=== PATIENT | female | born 1990 | race Caucasian/White ===

== ENCOUNTER 2017-12-03 05:43 | Inpatient (IN) | payer OTHER ==
[~2017-12-03] VITALS: Ht 170.2 cm; Wt 96.2 kg
[~2017-12-03 05:43] MED LIST: AMOXICILLIN500 MG PO; AUGMENTIN875 MG PO; Feosol PO; INDOCIN25 MG PO; KEFLEX500 MG PO; KEPPRA500 MG PO; KEPPRA750 MG PO; LIDOCAINE20 MG/1 M5 PO; METHADONE 22 MG/1 ML PO; Motrin PO; NAPROSYN500 MG PO; NO MEDS; PRENATAL TABLE1 EACH PO; PYRIDIUM100 MG PO; Percocet 5/325,Endoc PO; ULTRACET1 TABLET PO; VYVANSE30 MG PO; VYVANSE40 MG PO; Vicodin,Lortab 5/500 PO
[2017-12-03 06:03] VITALS: BP 127/71
[2017-12-03 07:34] LABS: BENZODIAZEPINES, URINE SCREEN Negative (200 ng/mL)
[2017-12-03] MEDS ORDERED: ENDOCET 5-3251 EACH PO (08:38)
[2017-12-03] MEDS ORDERED: IBUPROFEN800 MG PO (08:38)
[2017-12-03 10:02] VITALS: BP 120/59
[2017-12-03 11:49] VITALS: BP 136/61
[2017-12-03 19:24] VITALS: BP 125/62
[2017-12-04 07:05] VITALS: BP 132/62
[2017-12-04 07:22] LABS: BASOPHIL (%) 0.4 % (0-1); EOSINOPHIL (%) 1.8 % (0-5); EOSINOPHIL COUNT 0.1 K/uL (0-0.3); HEMATOCRIT 28.5 % (36.0-46.0); IMMATURE GRANULOCYTE (%) 0.5 % (0.0-0.7); LYMPHOCYTE (%) 30.1 % (15-42); LYMPHOCYTE COUNT 2.3 K/uL (1.0-2.8); MCH 29.4 PG (29.0-34.0); MCHC 33.3 G/DL (30.0-36.0); MCV 88.2 FL (83-99); MONOCYTE (%) 6.3 % (3-12); MONOCYTE COUNT 0.5 K/uL (0-0.8); NEUTROPHIL (%) 60.9 % (45-76); NEUTROPHIL COUNT 4.6 K/uL (1.8-6.4); PLATELET COUNT 176 K/uL (156-360); RBC DIS.WIDTH-CV 13.7 % (11.8-14.6); RBC DIS.WIDTH-SD 43.8 % (39-53); WHITE BLOOD COUNT 7.6 K/uL (4.1-10.2)
[2017-12-04 07:25] LABS: HEMOGLOBIN 9.5 G/DL (11.9-15.5); RED BLOOD COUNT 3.23 M/uL (3.80-5.20)
[2017-12-04 11:12] VITALS: BP 127/61
[2017-12-04 15:30] VITALS: BP 129/67
[2017-12-04 19:13] VITALS: BP 122/67
[2017-12-04 22:49] VITALS: BP 113/63
[2017-12-05 07:05] VITALS: BP 112/65
[2017-12-05 15:06] VITALS: BP 125/65
[2017-12-05 22:05] VITALS: BP 124/62
[2017-12-06 07:23] VITALS: BP 119/75
[2017-12-06 14:27] VITALS: BP 125/75
[2017-12-06 22:27] VITALS: BP 127/74
[2017-12-07 08:00] VITALS: BP 113/55
[2017-12-07 16:00] VITALS: BP 111/59
[2017-12-07 23:01] VITALS: BP 126/63
== END 2017-12-07 23:55 | disposition home or self-care (01) | DRG 765 ==
LOC: 2WEST 05:43 → 2SOUTH 10:21 → 2WEST 12-07 16:31
PROVIDERS: Obstetrics & Gynecology; Obstetrics & Gynecology Gynecology
DX: O99.324 Drug use complicating childbirth (principal); F11.20 Opioid dependence, uncomplicated; O99.354 Diseases of the nervous system complicating childbirth; Z3A.39 39 weeks gestation of pregnancy; O34.211 Maternal care for low transverse scar from previous cesarean delivery; Z30.2 Encounter for sterilization; O12.04 Gestational edema, complicating childbirth; O99.72 Diseases of the skin and subcutaneous tissue complicating childbirth; L30.9 Dermatitis, unspecified; Z37.0 Single live birth; O99.214 Obesity complicating childbirth; E66.9 Obesity, unspecified; F17.210 Nicotine dependence, cigarettes, uncomplicated; O99.334 Smoking (tobacco) complicating childbirth; G40.909 Epilepsy, unspecified, not intractable, without status epilepticus; Z68.33 Body mass index [BMI] 33.0-33.9, adult; Z80.1 Family history of malignant neoplasm of trachea, bronchus and lung; Z81.8 Family history of other mental and behavioral disorders; Z86.32 Personal history of gestational diabetes
CPT/HCPCS: 36415; 80306 90; 85025; 86850; 86870; 86900; 86901; 86905; 86920; 86999; 87641; 88302; J0690; J1100; J1170; J2274; J2405; J2590; J7120